=== PATIENT | male | born 1980 | race African-American/Black ===

== ENCOUNTER 2020-06-13 17:55 | Emergency (ER) | payer OTHER, SELFPAY ==
[2020-06-13] MEDS ORDERED: Boostrix 0.5 ML VIAL ONE (19:05)
--- NOTE | 2020-06-13 19:17 | RAD ---
Frontal and lateral imaging of the right femur: 06/13/2020 COMPARISON: None available HISTORY: Dog bite to the inner right thigh FINDINGS: No fracture or dislocation. No radiopaque foreign body is seen. There is questionable subtl e soft tissue gas within the medial soft tissues, consistent with the patient's history of dog bite. Distal femur is not fully imaged on the frontal view and proximal femur is not fully imaged on the oblique view. IMPRESSION: No radiopaque foreign body or evidence for fracture of the visualized femur.
== END 2020-06-13 19:25 | disposition home or self-care (01) ==
LOC: NAV ERS 17:55
DX: S71.151A Open bite, right thigh, initial encounter (principal); F41.9 Anxiety disorder, unspecified; F17.200 Nicotine dependence, unspecified, uncomplicated; W54.0XXA Bitten by dog, initial encounter
CPT/HCPCS: 90471; 90715

== ENCOUNTER 2023-05-29 17:37 | Emergency (ER) | payer SELFPAY | END 2023-05-29 18:20 | disposition left against medical advice (07) | LOC: NAV ERS 17:37 → EDBD 17:37 → NAV ERS 18:20 | DX: R42 Dizziness and giddiness (principal); F17.210 Nicotine dependence, cigarettes, uncomplicated; I10 Essential (primary) hypertension; Z53.21 Procedure and treatment not carried out due to patient leaving prior to being seen by health care provider ==